=== PATIENT | female | born 1985 | race African-American/Black ===

== ENCOUNTER 2018-10-06 08:56 | Emergency (ER) | payer SELFPAY ==
[~2018-10-06] VITALS: Ht 162.6 cm; Wt 55.0 kg
[2018-10-06] MEDS ORDERED: KETOROLAC 60MG/2ML VIAL IM ONE (10:30)
[2018-10-06] MEDS ORDERED: DIAZEPAM 2 MG TABLET PO ONE (10:30)
[2018-10-06 12:17] VITALS: BP 125/68
== END 2018-10-06 12:20 | disposition home or self-care (01) ==
LOC: ER 09:08
DX: S16.1XXA Strain of muscle, fascia and tendon at neck level, initial encounter (principal); V49.88XA Car occupant (driver) (passenger) injured in other specified transport accidents, initial encounter; Y93.89 Activity, other specified; Y92.89 Other specified places as the place of occurrence of the external cause; Y99.8 Other external cause status
CPT/HCPCS: 81025; 96372; 99283; J1885